=== PATIENT | male | born 1960 | race Caucasian/White ===

== ENCOUNTER 2020-12-17 13:25 | Outpatient (CLI) | payer BC ==
[2020-12-17] MEDS ORDERED: Magnevist 469MG/ML 20 ML VIAL ONE (13:49)
== END 2020-12-17 13:26 | disposition home or self-care (01) ==
LOC: TBSIIMAG 13:25
PROVIDERS: ATTEND Surgery
DX: R51.9 Headache, unspecified (principal); R93.0 Abnormal findings on diagnostic imaging of skull and head, not elsewhere classified
CPT/HCPCS: 70553; A9579

== ENCOUNTER 2021-01-03 13:32 | Outpatient (CLI) | payer BC | END 2021-01-03 13:33 | disposition home or self-care (01) | LOC: BICCT 13:32 | PROVIDERS: ATTEND Surgery | DX: I67.1 Cerebral aneurysm, nonruptured (principal) | CPT/HCPCS: 70496 ==

== ENCOUNTER 2022-01-19 10:08 | Observation (INO) | payer BC ==
[2022-01-19] MEDS ORDERED: Morphine 4 MG/ML VIAL ONE ×2 (10:58→12:52)
[2022-01-19] MEDS ORDERED: Iopamidol-370 76% 500 ML 1 ML ONE (11:02)
[2022-01-19] MEDS ORDERED: Diazepam 5 MG TAB ONE (11:08)
[2022-01-19 11:10] LABS: Hemoglobin 16.4 g/dL (14.0-18.0); Mean Corpuscular HGB CONC 34.1 g/dL (32.0-36.0); Mean Corpuscular Hemoglobin 30.2 pg (27.0-31.0); Mean Corpuscular Volume 88.4 fl (78.0-98.0); Platelet Count 212 10x3/uL (130-400); RBC Distribution Width 11.2 % (11.5-14.5); Red Blood Cell (RBC) Count 5.44 mill/uL (4.70-6.10); White Blood Cell (WBC) Count 20.2 10x3/uL (4.8-10.8)
[2022-01-19 11:29] LABS: ALT (SGPT) 68 U/L (8-55); AST (SGOT) 34 U/L (5-34); Albumin 5.2 g/dL (3.4-4.8); Alkaline Phosphatase 76 U/L (40-110); Anion Gap 17 mmol/L (10-20); BUN (Urea Nitrogen) 20 mg/dL (8.4-25.7); Bilirubin, Total 1.3 mg/dL (0.2-1.2); Calc. Creatinine Clearance 0 mL/min (70-130); Calcium 10.1 mg/dL (7.8-10.44); Carbon Dioxide 22 mmol/L (23-31); Chloride 102 mmol/L (98-107); Estimated GFR 74; Globulin 2.9 g/dL (2.4-3.5); Glucose 116 mg/dL (80-115); Lipase 16 U/L (8-78); Potassium 4.1 mmol/L (3.5-5.1); Protein, Total 8.1 g/dL (5.8-8.1); Sodium 137 mmol/L (136-145)
[2022-01-19 11:32] LABS: Band 5 % (5-11); Lymphocytes 1 % (21-51); MDiff Complete? YES; Monocytes 8 % (0-10); Neutrophil 83 % (42-75); Platelet Morphology Comment Appears Adequate; RBC Morphology Normal; Reactive Lymphocytes 3 % (0-10)
[2022-01-19 13:57] LABS: Bilirubin Negative (Negative); Blood, Urine Negative (Negative); Clarity Clear (Clear); Glucose, Urine (Dipstick) Normal (Negative); Ketone, Urine Negative (Negative); Leukocyte Negative Leu/uL (Negative); Nitrite Negative (Negative); Protein, Urine (Dipstick) 30 mg/dL (Neg-Trace); Specific Gravity, Urine 1.031 (1.002-1.036); Urobilinogen Normal mg/dL (Less than 2); pH, Urine 6.5 (5.0-9.0)
[2022-01-19] MEDS ORDERED: Morphine 4 MG/ML VIAL SLOW IVP PRN (14:13)
[2022-01-19] MEDS ORDERED: Metoprolol Tartrate 5 MG/5 ML VIAL ONE (16:42)
[2022-01-19 17:51] LABS: SARS-CoV-2 NAA Rapid Test Not Detected (NotDetected)
[2022-01-19 18:24] VITALS: BMI 31.8
[2022-01-19] MEDS ORDERED: FLU VACC QS2022-23(6MOS UP)/PF 60 MCG/0.5 ML SYRINGE IM ONE (18:30)
[2022-01-20 05:24] LABS: #Eosinphils 0.1 thou/uL (0.0-0.7); #Lymphocytes 2.6 thou/uL (1.20-3.40); #Monocytes 1.4 thou/uL (0.11-0.59); %Basophils 0.2 % (0.0-1.0); %Eosinophils 0.9 % (0.0-10.0); %Lymphocytes 18.3 % (21.0-51.0); %Monocytes 10.1 % (0.0-10.0); %Neutrophils 70.5 % (42.0-75.0); Mean Corpuscular HGB CONC 34.7 g/dL (32.0-36.0); Mean Corpuscular Volume 89.4 fl (78.0-98.0); Platelet Count 195 10x3/uL (130-400); RBC Distribution Width 11.4 % (11.5-14.5); Red Blood Cell (RBC) Count 5.17 mill/uL (4.70-6.10); White Blood Cell (WBC) Count 14.1 10x3/uL (4.8-10.8)
[2022-01-20 06:01] LABS: ALT (SGPT) 57 U/L (8-55); AST (SGOT) 26 U/L (5-34); Albumin 4.5 g/dL (3.4-4.8); Alkaline Phosphatase 70 U/L (40-110); Anion Gap 14 mmol/L (10-20); BUN (Urea Nitrogen) 17 mg/dL (8.4-25.7); Calc. Creatinine Clearance 117 mL/min (70-130); Calcium 9.4 mg/dL (7.8-10.44); Carbon Dioxide 21 mmol/L (23-31); Chloride 103 mmol/L (98-107); Estimated GFR 76; Globulin 2.7 g/dL (2.4-3.5); Glucose 122 mg/dL (80-115); Potassium 3.8 mmol/L (3.5-5.1); Protein, Total 7.2 g/dL (5.8-8.1); Sodium 134 mmol/L (136-145)
[2022-01-20] MEDS: Acetaminophen 325 MG TAB PO PRN (08:20)
[2022-01-20] MEDS ORDERED: Bisacodyl 5 MG TAB PO PRN (08:50)
[2022-01-20] MEDS ORDERED: Bisacodyl 5 MG TAB PO SCH (09:00)
[2022-01-21 08:11] LABS: #Basophils 0.1 thou/uL (0.0-0.2); #Eosinphils 0.3 thou/uL (0.0-0.7); #Lymphocytes 2.1 thou/uL (1.20-3.40); #Monocytes 1.5 thou/uL (0.11-0.59); #Neutrophils 8.9 thou/uL (1.40-6.50); %Basophils 0.4 % (0.0-1.0); %Eosinophils 2.4 % (0.0-10.0); %Lymphocytes 16.5 % (21.0-51.0); %Monocytes 11.3 % (0.0-10.0); %Neutrophils 69.4 % (42.0-75.0); Hemoglobin 16.4 g/dL (14.0-18.0); Mean Corpuscular HGB CONC 34.1 g/dL (32.0-36.0); Mean Corpuscular Hemoglobin 30.7 pg (27.0-31.0); Mean Platelet Volume 9.1 fL (7.4-10.4); Platelet Count 192 10x3/uL (130-400); RBC Distribution Width 11.5 % (11.5-14.5); Red Blood Cell (RBC) Count 5.35 mill/uL (4.70-6.10); White Blood Cell (WBC) Count 12.9 10x3/uL (4.8-10.8)
[2022-01-21 08:23] LABS: Anion Gap 13 mmol/L (10-20); BUN (Urea Nitrogen) 20 mg/dL (8.4-25.7); Calc. Creatinine Clearance 98 mL/min (70-130); Calcium 9.7 mg/dL (7.8-10.44); Carbon Dioxide 27 mmol/L (23-31); Chloride 103 mmol/L (98-107); Estimated GFR 61; Glucose 112 mg/dL (80-115); Sodium 138 mmol/L (136-145)
[2022-01-21] MEDS: Acetaminophen 325 MG TAB PO PRN (09:39)
[2022-01-21] MEDS ORDERED: Midazolam HCl 2 mg/2 ml Vial ONE (10:38)
[2022-01-21] MEDS ORDERED: fentaNYL PF 100 MCG/2 ML SYRINGE ONE (10:38)
[2022-01-21] MEDS ORDERED: SUGAMMADEX SODIUM 200 MG/2 ML VIAL ONE (10:39)
[2022-01-21] MEDS ORDERED: Lidocaine 2% 6 ML SYR ONE (10:39)
[2022-01-21] MEDS ORDERED: HYDROmorphone 2 MG/ML VIAL ONE (11:02)
[2022-01-21] MEDS ORDERED: Bupivacaine/Epinephrine 0.25% 30 ML VIAL ONE (11:18)
[2022-01-21] MEDS ORDERED: Iopamidol 30 ML ONE (11:18)
[2022-01-21] MEDS ORDERED: cefOXitin 2 GM VIAL ONE (11:24)
[2022-01-21] MEDS ORDERED: Sodium Chloride 0.9% 100 ML ONE (11:24)
[2022-01-21] MEDS ORDERED: Rocuronium Bromide 10 MG/ML (10ML VIAL) ONE (11:28)
[2022-01-21] MEDS ORDERED: Dexamethasone 20 MG/5 ML VIAL ONE (11:28)
[2022-01-21] MEDS ORDERED: Ketorolac Tromethamine 30 MG/ML VIAL ONE (11:28)
[2022-01-21] MEDS ORDERED: PROPOFOL 200 MG/20 ML VIAL ONE (11:28)
[2022-01-21] MEDS ORDERED: Ondansetron PF 4 MG/2 ML Vial IVP PRN (12:34)
[2022-01-21] MEDS ORDERED: HYDROcodone/Acetaminophen 7.5/325 mg Tablet PO PRN (12:34)
[2022-01-21] MEDS ORDERED: Morphine 4 MG/ML VIAL SLOW IVP PRN (12:34)
[2022-01-21 15:58] VITALS: BP 134/79; TEMP 97.1
[2022-01-22] MEDS ORDERED: Amitriptyline HCl 25 MG TAB PO SCH (09:00)
== END 2022-01-21 18:30 | disposition home or self-care (01) ==
LOC: ERS 10:08 → ERHOLD 13:16 → 2SW 17:54
PROVIDERS: ADMIT Internal Medicine; ATTEND Internal Medicine
PROC: 0FT44ZZ Resection of Gallbladder, Percutaneous Endoscopic Approach (ICD-10-PCS; principal; 2022-01-21)
PROC: BF00YZZ Plain Radiography of Bile Ducts using Other Contrast (ICD-10-PCS; 2022-01-21)
DX: K80.12 Calculus of gallbladder with acute and chronic cholecystitis without obstruction (principal); M54.9 Dorsalgia, unspecified; E87.1 Hypo-osmolality and hyponatremia; R79.89 Other specified abnormal findings of blood chemistry; I20.8 Other forms of angina pectoris; R03.0 Elevated blood-pressure reading, without diagnosis of hypertension; E78.5 Hyperlipidemia, unspecified; G89.29 Other chronic pain; Z20.822 Contact with and (suspected) exposure to COVID-19
CPT/HCPCS: 36415; 47532; 71045; 71260; 74177; 76705; 80048; 80053; 81003; 81015; 83690; 84484; 85025; 87086; 88304; 93005; 94760; 96374; 96375; 96376; C1889; G0378; J0694; J1100; J1170; J1885; J2250; J2270; J2704; J3490; Q9967; U0002